=== PATIENT | female | born 1960 | race Caucasian/White ===

== ENCOUNTER 2016-10-13 09:56 | Emergency (ER) | payer BC ==
[2016-10-13 10:06] VITALS: RESP 18
[2016-10-13] MEDS ORDERED: methylPREDNISolone SOD SUCCI 125 MG/2 ML VIAL IM ONE (10:38)
[2016-10-13] MEDS ORDERED: diphenhydrAMINE 50 MG/ML 1 ML VIAL IM STA (10:38)
[2016-10-13] MEDS ORDERED: FAMOTIDINE 20 MG TAB PO STA (10:38)
--- NOTE | 2016-10-13 10:42 | ED ---
Skin/Abscess/FB HPI - General Chief complaint: Skin/Abscess/Foreign Body Stated complaint: Hives Time Seen by Provider: 10/13/16 10:20 Source: patient, RN notes reviewed, old records reviewed Mode of arrival: ambulatory Limitations: no limitations - History of Present Illness Initial comments: This is a 35-year-old female presenting to emergency room chief complaint of hive-like reaction for the past day. Patient reports initially started last night she noticed some welts on her finger. She reports that she went to bed at night, and woke up this morning with hives over her entire body. She reports that she had fish last night for dinner but does not have any previous ALLERGIC reaction such as this. Patient states that yesterday she was sitting on her porch drinking a glass of wine when she noticed that she started itching on her finger. Patient states she's had no recent Benadryl. She denies any shortness of breath or throat swelling. Patient denies any recent fever, chills , shortness of breath, chest pain, back pain, abdominal pain, nausea vomiting, numbness or tingling, dysuria or hematuria, constipation or diarrhea, headaches or visual changes, or any other current symptoms. And his history of psychiatric illness, and hypertension. - Related Data Home Medications Medication Instructions Recorded Confirmed ALPRAZolam [Xanax] 1 mg PO QID PRN 10/13/16 10/13/16 Carvedilol [Coreg] 12.5 mg PO BID 10/13/16 10/13/16 Escitalopram [Lexapro] 10 mg PO DAILY 10/13/16 10/13/16 Estrogens, Conjugated [Premarin] 0.625 mg PO DAILY 10/13/16 10/13/16 Lisinopril [Prinivil] 10 mg PO DAILY 10/13/16 10/13/16 Perphenazine/Amitriptyline4-25 1 tab PO TID PRN 10/13/16 10/13/16 Previous Rx's Medication Instructions Recorded Famotidine [Pepcid] 20 mg PO BID #10 tablet 10/13/16 predniSONE 50 mg PO DAILY #5 tab 10/13/16 Allergies Allergy/AdvReac Type Severity Reaction Status Date / Time No Known Allergies Allergy Verified 10/13/16 10:35 Review of Systems ROS Statement: Those systems with pertinent positive or pertinent negative responses have been documented in the HPI. ROS Other: All systems not noted in ROS Statement are negative. Past Medical History Additional Past Medical History / Comment(s): viral dilated cardiomyopathy depression History of Any Multi-Drug Resistant Organisms: None Reported Past Surgical History: Hysterectomy, Orthopedic Surgery Additional Past Surgical History / Comment(s): breast augmentation tummy kerryck Past Psychological History: Depression Smoking Status: Current every day smoker Past Alcohol Use History: Daily Past Drug Use History: None Reported General Exam - General Exam Comments Initial Comments: 55-year-old female. Patient does appear to be itching and discomfort. Limitations: no limitations General appearance: alert, in no apparent distress Head exam: Present: atraumatic, normocephalic, normal inspection Eye exam: Present: normal appearance, PERRL, EOMI. Absent: scleral icterus, conjunctival injection, periorbital swelling ENT exam: Present: normal exam, mucous membranes moist Neck exam: Present: normal inspection. Absent: tenderness, meningismus, lymphadenopathy Respiratory exam: Present: normal lung sounds bilaterally. Absent: respiratory distress, wheezes, rales, rhonchi, stridor Cardiovascular Exam: Present: regular rate, normal rhythm, normal heart sounds. Absent: systolic murmur, diastolic murmur, rubs, gallop, clicks GI/Abdominal exam: Present: soft, normal bowel sounds. Absent: distended, tenderness, guarding, rebound, rigid Extremities exam: Present: normal inspection, full ROM, normal capillary refill. Absent: tenderness, pedal edema, joint swelling, calf tenderness Back exam: Present: normal inspection Neurological exam: Present: alert, oriented X3, CN II-XII intact Psychiatric exam: Present: normal affect, normal mood Skin exam: Present: warm, dry, intact, normal color, urticaria (Patient has diffuse urticaria over arms, chest, abdomen and legs.). Absent: rash Course Vital Signs 10/13/16 10:01 Temperature 97.6 F Pulse Rate 96 Respiratory 18 Rate Blood Pressure 137/77 O2 Sat by Pulse 99 Oximetry - Reevaluation(s) Reevaluation #1: 10/13/16 11:38 is reevaluated and is feeling much better. Hives have resolved. Patient states the itching has stopped. Patient discharged at this time. Medical Decision Making - Medical Decision Making This is a 55-year-old female. Patient has diffuse urticaria over abdomen, chest , legs, and hands and wrists. Patient was given IM Solu-Medrol and Benadryl and Pepcid. Patient is reevaluated is feeling much better. The hives have resolved. Patient will be discharged with a prescription for prednisone and Pepcid. I discussed that she needs to purchase [id number] Benadryl taking every 4-6 hours. Discussed also using hydrocortisone cream. Patient understood history plan will comply. Return parameters were discussed. Disposition Clinical Impression: Acute urticaria, Allergic reaction Disposition: HOME SELF-CARE Condition: Good Instructions: Urticaria (ED) Additional Instructions: Advised to follow-up with primary care provider. Take the prescription as as directed. Return to the emergency department if any alarming signs or symptoms occur. Patient can purchase hydrocortisone cream [id number] to use for topical itch relief, as well as patient needs to take Benadryl every 4-6 hours. Prescriptions: Famotidine [Pepcid] 20 mg PO BID #10 tablet predniSONE 50 mg PO DAILY #5 tab Referrals: Pedro Pablo Schmid MD [Primary Care Provider] - 1-2 days Time of Disposition: 11:39
[2016-10-13 11:52] VITALS: BP 127/82; PULSE 70; TEMP 98.8
== END 2016-10-13 11:52 | disposition home or self-care (01) ==
LOC: EC 09:56
DX: L50.0 Allergic urticaria (principal); I42.0 Dilated cardiomyopathy; F32.9 Major depressive disorder, single episode, unspecified; F17.200 Nicotine dependence, unspecified, uncomplicated; Z79.3 Long term (current) use of hormonal contraceptives; Z79.899 Other long term (current) drug therapy
CPT/HCPCS: 99283; 96372 ×2; J1200; J2930

== ENCOUNTER 2016-12-05 23:02 | Emergency (ER) | payer BC ==
[2016-12-05 23:10] VITALS: BP 172/90; PULSE 102; RESP 16; TEMP 97.6
--- NOTE | 2016-12-05 23:29 | ED ---
Psych HPI - General Chief Complaint: Psychiatric Symptoms Stated Complaint: Mental Health/Suicidal Time Seen by Provider: 12/05/16 23:10 Source: patient, RN notes reviewed Mode of arrival: ambulatory Limitations: no limitations - History of Present Illness Initial Comments: This a 56-year-old female presents emergency Department for psychiatric evaluation. Patient states she is depressed, suicidal. Patient states she was here approximately one week ago because she felt this way but symptoms have progressed. Patient states that she was intoxicated before and then told EPS that she was not suicidal though she was. Patient states she attempted take some pills other day. She is them out. She states that if she does leave tonight that she will kill herself. Patient states that her depression and suicidal thoughts for her before. Patient is brought to emergency brought by . - Related Data Home Medications Medication Instructions Recorded Confirmed ALPRAZolam [Xanax] 1 mg PO QID PRN 10/13/16 11/29/16 Carvedilol [Coreg] 12.5 mg PO BID 10/13/16 11/29/16 Escitalopram [Lexapro] 10 mg PO DAILY 10/13/16 11/29/16 Estrogens, Conjugated [Premarin] 0.625 mg PO DAILY 10/13/16 11/29/16 Perphenazine/Amitriptyline4-25 1 tab PO TID PRN 10/13/16 11/29/16 Allergies Allergy/AdvReac Type Severity Reaction Status Date / Time bee venom protein (honey bee) Allergy Anaphylaxis Verified 12/05/16 23:10 Review of Systems ROS Statement: Those systems with pertinent positive or pertinent negative responses have been documented in the HPI. ROS Other: All systems not noted in ROS Statement are negative. Past Medical History Additional Past Medical History / Comment(s): viral dilated cardiomyopathy depression History of Any Multi-Drug Resistant Organisms: None Reported Past Surgical History: Hysterectomy, Orthopedic Surgery Additional Past Surgical History / Comment(s): breast augmentation tummy tuck Past Psychological History: Depression Smoking Status: Current every day smoker Past Alcohol Use History: Daily Past Drug Use History: None Reported General Exam Limitations: no limitations General appearance: alert, in no apparent distress Head exam: Present: atraumatic, normocephalic, normal inspection Eye exam: Present: normal appearance, PERRL, EOMI. Absent: scleral icterus, conjunctival injection, periorbital swelling ENT exam: Present: normal exam, normal oropharynx, mucous membranes moist, TM's normal bilaterally, normal external ear exam Neck exam: Present: normal inspection, full ROM. Absent: tenderness, meningismus, lymphadenopathy Respiratory exam: Present: normal lung sounds bilaterally. Absent: respiratory distress, wheezes, rales, rhonchi, stridor Cardiovascular Exam: Present: regular rate, normal rhythm, normal heart sounds. Absent: systolic murmur, diastolic murmur, rubs, gallop, clicks GI/Abdominal exam: Present: soft, normal bowel sounds. Absent: distended, tenderness, guarding, rebound, rigid Psychiatric exam: Present: flat affect Skin exam: Present: warm, dry, intact, normal color. Absent: rash Course Vital Signs 12/05/16 23:06 Temperature 97.6 F Pulse Rate 102 H Respiratory 16 Rate Blood Pressure 172/90 O2 Sat by Pulse 100 Oximetry Medical Decision Making - Medical Decision Making 56-year-old female presented emergency department for depression. Patient was evaluated by EPS. Case discussed with psychiatrist. Patient will be discharged for outpatient therapy. Patient states that she is not suicidal now. - Lab Data Result diagrams: 12/05/16 23:20 12/05/16 23:20 Lab Results 12/05/16 12/05/16 12/05/16 Range/Units 23:20 23:20 23:20 WBC 7.3 (3.8-10.6) k/uL RBC 4.08 (3.80-5.40) m/uL Hgb 14.0 (11.4-16.0) gm/dL Hct 41.7 (34.0-46.0) % MCV 102.2 H (80.0-100.0) fL MCH 34.3 (25.0-35.0) pg MCHC 33.5 (31.0-37.0) g/dL RDW 13.0 (11.5-15.5) % Plt Count 270 (150-450) k/uL Neutrophils % 46 % Lymphocytes % 40 % Monocytes % 6 % Eosinophils % 4 % Basophils % 1 % Neutrophils # 3.3 (1.3-7.7) k/uL Lymphocytes # 2.9 (1.0-4.8) k/uL Monocytes # 0.5 (0-1.0) k/uL Eosinophils # 0.3 (0-0.7) k/uL Basophils # 0.1 (0-0.2) k/uL Macrocytosis Slight Sodium (137-145) mmol/L Potassium (3.5-5.1) mmol/L Chloride (98-107) mmol/L Carbon Dioxide (22-30) mmol/L Anion Gap mmol/L BUN (7-17) mg/dL Creatinine (0.52-1.04) mg/dL Est GFR (MDRD) Af Amer (>60 ml/min/1.73 sqM) Est GFR (MDRD) Non-Af (>60 ml/min/1.73 sqM) Glucose (74-99) mg/dL Calcium (8.4-10.2) mg/dL Total Bilirubin (0.2-1.3) mg/dL AST (14-36) U/L ALT (9-52) U/L Alkaline Phosphatase (38-126) U/L Total Protein (6.3-8.2) g/dL Albumin (3.5-5.0) g/dL Urine Color Light Yellow Urine Appearance Cloudy H (Clear) Urine pH 5.5 (5.0-8.0) Ur Specific [place] 1.012 (1.001-1.035) Urine Protein Negative (Negative) Urine Glucose (UA) Negative (Negative) Urine Ketones Negative (Negative) Urine Blood Small H (Negative) Urine Nitrite Negative (Negative) Urine Bilirubin Negative (Negative) Urine Urobilinogen <2.0 (<2.0) mg/dL Ur Leukocyte Esterase Negative (Negative) Urine RBC 2 (0-5) /hpf Urine WBC 2 (0-5) /hpf Ur Squamous Epith Cells 7 H (0-4) /hpf Urine Bacteria Occasional H (None) /hpf Urine Mucus Rare H (None) /hpf Urine Opiates Screen Detected H (NotDetected) Ur Oxycodone Screen Not Detected (NotDetected) Urine Methadone Screen Not Detected (NotDetected) Ur Propoxyphene Screen Not Detected (NotDetected) Ur Barbiturates Screen Not Detected (NotDetected) U Tricyclic Antidepress Detected H (NotDetected) Ur Phencyclidine Scrn Not Detected (NotDetected) Ur Amphetamines Screen Not Detected (NotDetected) U Methamphetamines Scrn Not Detected (NotDetected) U Benzodiazepines Scrn Detected H (NotDetected) Urine Cocaine Screen Not Detected (NotDetected) U Marijuana (THC) Screen Not Detected (NotDetected) 12/05/16 Range/Units 23:20 WBC (3.8-10.6) k/uL RBC (3.80-5.40) m/uL Hgb (11.4-16.0) gm/dL Hct (34.0-46.0) % MCV (80.0-100.0) fL MCH (25.0-35.0) pg MCHC (31.0-37.0) g/dL RDW (11.5-15.5) % Plt Count (150-450) k/uL Neutrophils % % Lymphocytes % % Monocytes % % Eosinophils % % Basophils % % Neutrophils # (1.3-7.7) k/uL Lymphocytes # (1.0-4.8) k/uL Monocytes # (0-1.0) k/uL Eosinophils # (0-0.7) k/uL Basophils # (0-0.2) k/uL Macrocytosis Sodium 138 (137-145) mmol/L Potassium 4.2 (3.5-5.1) mmol/L Chloride 103 (98-107) mmol/L Carbon Dioxide 25 (22-30) mmol/L Anion Gap 10 mmol/L BUN 14 (7-17) mg/dL Creatinine 0.80 (0.52-1.04) mg/dL Est GFR (MDRD) Af Amer >60 (>60 ml/min/1.73 sqM) Est GFR (MDRD) Non-Af >60 (>60 ml/min/1.73 sqM) Glucose 94 (74-99) mg/dL Calcium 9.6 (8.4-10.2) mg/dL Total Bilirubin 0.2 (0.2-1.3) mg/dL AST 22 (14-36) U/L ALT 30 (9-52) U/L Alkaline Phosphatase 67 (38-126) U/L Total Protein 6.7 (6.3-8.2) g/dL Albumin 4.1 (3.5-5.0) g/dL Urine Color Urine Appearance (Clear) Urine pH (5.0-8.0) Ur Specific [place] (1.001-1.035) Urine Protein (Negative) Urine Glucose (UA) (Negative) Urine Ketones (Negative) Urine Blood (Negative) Urine Nitrite (Negative) Urine Bilirubin (Negative) Urine Urobilinogen (<2.0) mg/dL Ur Leukocyte Esterase (Negative) Urine RBC (0-5) /hpf Urine WBC (0-5) /hpf Ur Squamous Epith Cells (0-4) /hpf Urine Bacteria (None) /hpf Urine Mucus (None) /hpf Urine Opiates Screen (NotDetected) Ur Oxycodone Screen (NotDetected) Urine Methadone Screen (NotDetected) Ur Propoxyphene Screen (NotDetected) Ur Barbiturates Screen (NotDetected) U Tricyclic Antidepress (NotDetected) Ur Phencyclidine Scrn (NotDetected) Ur Amphetamines Screen (NotDetected) U Methamphetamines Scrn (NotDetected) U Benzodiazepines Scrn (NotDetected) Urine Cocaine Screen (NotDetected) U Marijuana (THC) Screen (NotDetected) Disposition Clinical Impression: Depression Disposition: HOME SELF-CARE Condition: Stable Instructions: Depression (ED) Additional Instructions: Please return to the Emergency Department if symptoms worsen or any other concerns. Referrals: Pedro Pablo Schmid MD [Primary Care Provider] - 1-2 days Time of Disposition: 01:15
[2016-12-05 23:57] LABS: Basophils # (A) 0.1 k/uL (0-0.2); Basophils % (A) 1 %; CH 34.1; CHCM 33.6; Eosinophils # (A) 0.3 k/uL (0-0.7); Eosinophils % (A) 4 %; HCT 41.7 % (34.0-46.0); HDW 2.62; Luc # (Auto) 0.22; Luc % (Auto) 3; Lymphocytes # (A) 2.9 k/uL (1.0-4.8); Lymphocytes % (A) 40 %; MCH 34.3 pg (25.0-35.0); MCHC 33.5 g/dL (31.0-37.0); MCV 102.2 fL (80.0-100.0); Macrocytosis Slight; Mean Platelet Volume 6.5; Monocytes # (A) 0.5 k/uL (0-1.0); Monocytes % (A) 6 %; Neutrophils # (A) 3.3 k/uL (1.3-7.7); Neutrophils % (A) 46 %; RBC 4.08 m/uL (3.80-5.40); WBC 7.3 k/uL (3.8-10.6)
[2016-12-06 00:03] LABS: Appearance,Urine Cloudy (Clear); Bacteria,Urine Occasional /hpf; Bilirubin,Urine Negative (Negative); Glucose,Urine (UA) Negative (Negative); Ketones,Urine Negative (Negative); Leukocyte Esterase,Urine Negative (Negative); Mucus,Urine Rare /hpf; Nitrite,Urine Negative (Negative); PH, Urine 5.5 (5.0-8.0); Particle Count 6068; Protein,Urine Negative (Negative); RBC,Urine 2 /hpf (0-5); Specific Gravity,Urine 1.012 (1.001-1.035); Squamous Epithelial Cell,Urine 7 /hpf (0-4); UA Billing (MACRO vs. MICRO) MICRO; Urobilinogen,Urine <2.0 mg/dL (<2.0); WBC,Urine 2 /hpf (0-5)
[2016-12-06 00:05] LABS: ALT 30 U/L (9-52); AST 22 U/L (14-36); Alkaline Phosphatase 67 U/L (38-126); Anion Gap 10 mmol/L; Blood Urea Nitrogen 14 mg/dL (7-17); Calcium 9.6 mg/dL (8.4-10.2); Carbon Dioxide 25 mmol/L (22-30); Chloride 103 mmol/L (98-107); Glucose 94 mg/dL (74-99); Non-African American GFR(MDRD) >60 (>60 ml/min/1.73 sqM); Potassium 4.2 mmol/L (3.5-5.1); Sodium 138 mmol/L (137-145); Total Bilirubin 0.2 mg/dL (0.2-1.3); Total Protein 6.7 g/dL (6.3-8.2)
== END 2016-12-06 01:39 | disposition home or self-care (01) ==
LOC: EC 23:02
DX: F32.9 Major depressive disorder, single episode, unspecified (principal); F17.200 Nicotine dependence, unspecified, uncomplicated; Z79.899 Other long term (current) drug therapy; Z91.030 Bee allergy status; R45.851 Suicidal ideations
CPT/HCPCS: 36415; 80053; 80306; 81001; 85025; 99284

== ENCOUNTER 2016-12-09 12:50 | Inpatient (IN) | payer BC ==
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
[2016-12-09] MEDS ORDERED: NICOTINE 21MG/24HR PATCH TRANSDERM STA (15:49)
[2016-12-09] MEDS ORDERED: ACETAMINOPHEN TAB 325 MG TAB PO PRN (18:09)
[2016-12-09] MEDS ORDERED: MAGNESIUM HYDROXIDE 2,400 MG/10 ML CUP PO PRN (18:09)
[2016-12-09] MEDS ORDERED: MAG HYDROX/AL HYDROX/SIMETH 30 ML CUP PO PRN (18:09)
[2016-12-09 19:01] VITALS: RESP 16
[2016-12-09] MEDS: CARVEDILOL 12.5 MG TAB PO SCH (19:15)
[2016-12-09] MEDS: ALPRAZolam 0.5 MG TAB PO PRN (19:15)
[2016-12-09] MEDS: AMITRIPTYLINE HCL 25 MG TAB PO SCH (22:12)
[2016-12-09] MEDS: PERPHENAZINE 4 MG TAB PO SCH (22:12)
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
[2016-12-10 09:07] VITALS: BMI 28.3
[2016-12-10 09:33] LABS: Basophils # (A) 0.1 k/uL (0-0.2); Basophils % (A) 1 %; CHCM 32.1; Eosinophils # (A) 0.2 k/uL (0-0.7); Eosinophils % (A) 3 %; HCT 44.9 % (34.0-46.0); HDW 2.55; Luc # (Auto) 0.09; Luc % (Auto) 1; Lymphocytes # (A) 2.5 k/uL (1.0-4.8); Lymphocytes % (A) 39 %; MCH 33.2 pg (25.0-35.0); MCHC 31.1 g/dL (31.0-37.0); MCV 106.6 fL (80.0-100.0); Macrocytosis Moderate; Mean Platelet Volume 6.3; Monocytes # (A) 0.3 k/uL (0-1.0); Monocytes % (A) 5 %; Neutrophils # (A) 3.3 k/uL (1.3-7.7); Neutrophils % (A) 51 %; RBC 4.22 m/uL (3.80-5.40); RDW 12.8 % (11.5-15.5); WBC 6.4 k/uL (3.8-10.6); WBC (Perox) 6.35
[2016-12-10] MEDS: AMITRIPTYLINE HCL 25 MG TAB PO SCH ×3 (09:34→21:09)
[2016-12-10] MEDS: CARVEDILOL 12.5 MG TAB PO SCH ×2 (09:34→17:39)
[2016-12-10] MEDS: ESTROGENS, CONJUGATED 0.625 MG TAB PO SCH (09:35)
[2016-12-10] MEDS: PERPHENAZINE 4 MG TAB PO SCH ×3 (09:35→21:09)
[2016-12-10] MEDS: ESCITALOPRAM 10 MG TAB PO SCH (09:36)
[2016-12-10] MEDS: NICOTINE 21MG/24HR PATCH TRANSDERM SCH (09:36)
[2016-12-10 09:51] LABS: ALT 26 U/L (9-52); AST 27 U/L (14-36); Alkaline Phosphatase 62 U/L (38-126); Anion Gap 11 mmol/L; Blood Urea Nitrogen 16 mg/dL (7-17); Calcium 9.8 mg/dL (8.4-10.2); Carbon Dioxide 24 mmol/L (22-30); Chloride 104 mmol/L (98-107); Cholesterol 263 mg/dL (<200); Glucose 122 mg/dL (74-99); HDL Cholesterol 109 mg/dL (40-60); Non-African American GFR(MDRD) >60 (>60 ml/min/1.73 sqM); Potassium 4.4 mmol/L (3.5-5.1); Sodium 139 mmol/L (137-145); Total Bilirubin 0.4 mg/dL (0.2-1.3); Total Protein 7.2 g/dL (6.3-8.2)
[2016-12-10] MEDS: ALPRAZolam 0.5 MG TAB PO PRN ×2 (14:37→21:11)
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
[2016-12-11 06:55] VITALS: BP 139/65; PULSE 90; TEMP 97.9
[2016-12-11] MEDS: ESTROGENS, CONJUGATED 0.625 MG TAB PO SCH (09:25)
[2016-12-11] MEDS: AMITRIPTYLINE HCL 25 MG TAB PO SCH (09:25)
[2016-12-11] MEDS: ESCITALOPRAM 10 MG TAB PO SCH (09:25)
[2016-12-11] MEDS: CARVEDILOL 12.5 MG TAB PO SCH (09:25)
[2016-12-11] MEDS: NICOTINE 21MG/24HR PATCH TRANSDERM SCH (09:25)
[2016-12-11] MEDS: PERPHENAZINE 4 MG TAB PO SCH (09:26)
== END 2016-12-11 10:33 | disposition home or self-care (01) | DRG 885 ==
LOC: EC 12:50 → 3MHU 16:59
PROVIDERS: ADMIT Psychiatry & Neurology Psychiatry; ATTEND Psychiatry & Neurology Psychiatry
DX: F33.1 Major depressive disorder, recurrent, moderate (principal); R45.851 Suicidal ideations; B33.24 Viral cardiomyopathy; F17.200 Nicotine dependence, unspecified, uncomplicated; F41.9 Anxiety disorder, unspecified; Z79.899 Other long term (current) drug therapy; Z90.710 Acquired absence of both cervix and uterus; Z98.82 Breast implant status; Z72.89 Other problems related to lifestyle; Z91.030 Bee allergy status
CPT/HCPCS: 80053; 80061; 80306; 82075; 83036; 84443; 85025; 99285

== ENCOUNTER 2017-03-04 17:39 | Emergency (ER) | payer BC ==
[2017-03-04] MEDS ORDERED: HYDROcodone/APAP 7.5-325MG 1 EACH TAB PO ONE (18:59)
--- NOTE | 2017-03-04 19:14 | ED ---
Extremity Problem HPI - General Chief complaint: Extremity Problem,Nontraumatic Stated complaint: Possible DVT Time Seen by Provider: 03/04/17 18:44 Source: patient, RN notes reviewed, old records reviewed Mode of arrival: ambulatory Limitations: no limitations - History of Present Illness Initial comments: this patient is a 56-year-old female presents emergency department today chief complaint of left calf pain. She reports that 2 weeks ago she was diagnosed with thrombophlebitis within the leg. She states she was taking aspirin, wearing compression stockings. She reports that she was concerned because she' s been having increasing pain in the leg. She states that she has been able to bear weight on it but it seems to be progressively worse. She reports that she' s had some shooting pains go down the leg as well as up the leg into the thigh. She reports that she was told to discontinue Premarin when she initially was diagnosed with a thrombophlebitis. He reports that the initial area of redness and swelling in her leg is gone down at this time, but she's concerned with the worsening pain.she is concerned that she may have a DVT. She denies any chest pain or shortness of breath.Patient denies any recent fever, chills, shortness of breath, chest pain, back pain, abdominal pain, nausea vomiting, numbness or tingling, dysuria or hematuria, constipation or diarrhea, headaches or visual changes, or any other current symptoms - Related Data Home Medications Medication Instructions Recorded Confirmed Carvedilol [Coreg*] 12.5 mg PO BID 10/13/16 03/04/17 Lisinopril [Zestril] 10 mg PO DAILY 03/04/17 03/04/17 Perphenazine/Amitriptyline4-25 1 tab PO DAILY 03/04/17 03/04/17 Previous Rx's Medication Instructions Recorded Escitalopram [Lexapro] 10 mg PO DAILY #14 tab 12/11/16 HYDROcodone/APAP 5-325MG [[place] 1 - 2 tab PO Q4H PRN #12 tab 03/04/17 5-325] Ibuprofen [Motrin] 600 mg PO Q8HR PRN #20 tab 03/04/17 Allergies Allergy/AdvReac Type Severity Reaction Status Date / Time bee venom protein (honey bee) Allergy Anaphylaxis Verified 03/04/17 19:02 Review of Systems ROS Statement: Those systems with pertinent positive or pertinent negative responses have been documented in the HPI. ROS Other: All systems not noted in ROS Statement are negative. Past Medical History Additional Past Medical History / Comment(s): "viral cardiomyopathy"takes coreg for it. depression since young child History of Any Multi-Drug Resistant Organisms: None Reported Past Surgical History: Hysterectomy, Orthopedic Surgery Additional Past Surgical History / Comment(s): breast augmentation tummy tuck, rt leg sx hardware since removed. "rt foot nerve removed" Past Anesthesia/Blood Transfusion Reactions: No Reported Reaction Past Psychological History: Depression Smoking Status: Current every day smoker Past Alcohol Use History: Daily Past Drug Use History: Prescription Drug Abuse - Past Family History Mother Family Medical History: Dementia Father Family Medical History: Cancer Additional Family Medical History / Comment(s): colon ca General Exam - General Exam Comments Initial Comments: this is a well-appearing alert and oriented 56-year-old female. No distress. Limitations: no limitations General appearance: alert, in no apparent distress Head exam: Present: atraumatic, normocephalic, normal inspection Eye exam: Present: normal appearance, PERRL, EOMI. Absent: scleral icterus, conjunctival injection, periorbital swelling ENT exam: Present: normal exam, mucous membranes moist Neck exam: Present: normal inspection. Absent: tenderness, meningismus, lymphadenopathy Respiratory exam: Present: normal lung sounds bilaterally. Absent: respiratory distress, wheezes, rales, rhonchi, stridor Cardiovascular Exam: Present: regular rate, normal rhythm, normal heart sounds. Absent: systolic murmur, diastolic murmur, rubs, gallop, clicks GI/Abdominal exam: Present: soft, normal bowel sounds. Absent: distended, tenderness, guarding, rebound, rigid Left Knee exam: Present: normal inspection, full ROM Lower Leg exam: Present: full ROM, erythema (minimal erythema pver distal calf) . Absent: normal inspection Ankle exam: Present: normal inspection, full ROM Foot/Toe exam: Present: normal inspection, full ROM Course Vital Signs 03/04/17 03/04/17 03/04/17 17:49 19:40 20:34 Temperature 97.4 F L 97.9 F Pulse Rate 104 H 91 90 Respiratory 17 18 12 Rate Blood Pressure 174/90 156/72 169/82 O2 Sat by Pulse 100 96 98 Oximetry Medical Decision Making - Medical Decision Making this patient is a 56-year-old female presents emergency department today chief complaint of left calf pain. She reports that 2 weeks ago she was diagnosed with thrombophlebitis within the leg. She states she was taking aspirin, wearing compression stockings. She reports that she was concerned because she' s been having increasing pain in the leg. She states that she has been able to bear weight on it but it seems to be progressively worse. She reports that she' s had some shooting pains go down the leg as well as up the leg into the thigh.patient does have some minor erythema over the distal aspect of the calf. She does have some tenderness over the gastrocnemius muscle. Patient has no significant swelling with like this with DVT. I did do an ultrasound. Ultrasound was negative for DVT. She has full range of motion of the toes and ankle and knee. At this emesis and seems most likely musculoskeletal or nerve related pain. Discussed that she should follow-up with her primary care physician. Discharge with a short course of pain medication and anti- inflammatory medicine. Discussed icing the area, and resting and keeping it elevated. She'll continue to use compression stockings whenever she is awake. Discussed taking off at night. - Radiology Data Radiology results: report reviewed ultrasound is negative for DVT. Disposition Clinical Impression: Pain of left calf Disposition: HOME SELF-CARE Condition: Good Instructions: Leg Pain (ED) Additional Instructions: patient advised to follow-up with primary care provider. Return to the emergency department if any alarming signs or symptoms occur. Prescriptions: HYDROcodone/APAP 5-325MG [[place] 5-325] 1 - 2 tab PO Q4H PRN #12 tab PRN Reason: Pain Ibuprofen [Motrin] 600 mg PO Q8HR PRN #20 tab PRN Reason: Pain Referrals: Pedro Pablo Schmid MD [Primary Care Provider] - 1-2 days Time of Disposition: 20:07
--- NOTE | 2017-03-04 19:39 | US ---
EXAMINATION TYPE: US venous doppler duplex LE LT DATE OF EXAM: 03/04/2017 6:54 PM COMPARISON: NONE CLINICAL HISTORY: Pain. SIDE PERFORMED: Left TECHNIQUE: The lower extremity deep venous system is examined utilizing real time linear array sonog jody with graded compression, doppler sonography and color-flow sonography. VESSELS IMAGED: External Iliac Vein (EIV) Common Femoral Vein Deep Femoral Vein Greater Saphenous Vein * Femoral Vein Popliteal Vein Small Saphenous Vein *, not visualized Proximal Calf Veins (* superficial vessels) Left Leg: Negative for DVT IMPRESSION: Grayscale, color doppler, spectral doppler imaging performed of the deep veins of the lo wer extremities. There is normal flow, compressibility, vascular waveforms. No evident deep venous thrombosis at or above the left knee
[2017-03-04 20:35] VITALS: BP 169/82; PULSE 90; RESP 12; TEMP 97.9
== END 2017-03-04 20:30 | disposition home or self-care (01) ==
LOC: EC 17:39
DX: M79.605 Pain in left leg (principal); F32.9 Major depressive disorder, single episode, unspecified; F17.200 Nicotine dependence, unspecified, uncomplicated; Z79.899 Other long term (current) drug therapy; Z91.030 Bee allergy status
CPT/HCPCS: 99284

== ENCOUNTER → 2017-05-04 | Outpatient (CLI) | payer BC ==
--- NOTE | 2017-05-04 17:16 | CT ---
EXAMINATION TYPE: CT iac w con DATE OF EXAM: 05/04/2017 COMPARISON: NONE HISTORY: Right ear thumping x [address] DLP: 150 mGycm Automated exposure control for dose reduction was used. CONTRAST: CT scan of the IACs is performed with IV Contrast, patient injected with 100 mL of Omnipaque 300. FINDINGS: There is significant mucosal thickening in the right maxillary sinus. The other paranasal s inuses are fairly well aerated. Maxilla is intact. There is normal aeration of the mastoid sinuses. E xternal auditory canals appear normal. The internal auditory canals are fairly symmetric. There is n o sinus cerebellopontine angle mass. There is however some enhancement within the right internal jodi tory canal compared to the left. There is normal aeration of the epitympanic recess bilaterally. Ther e is normal aeration of the middle ear cavity. I see no focal bone destruction. IMPRESSION: There is some mild enhancement within the right internal auditory canal that could relate to a small neuroma. MR scan would be helpful for further evaluation if clinically indicated. Right maxillary sinusitis.
== END | disposition home or self-care (01) ==
LOC: RADCTMAIN 15:50
PROVIDERS: ATTEND Otolaryngology
DX: H92.01 Otalgia, right ear (principal)
CPT/HCPCS: 70481; Q9967

== ENCOUNTER 2017-07-15 03:47 | Emergency (ER) | payer BC ==
[2017-07-15 03:55] VITALS: BP 122/72; PULSE 107; RESP 18; TEMP 97.7
[2017-07-15] MEDS ORDERED: PHENAZOPYRIDINE 200 MG TAB PO STA (04:01)
[2017-07-15] MEDS ORDERED: IBUPROFEN 600 MG TAB PO STA (04:01)
--- NOTE | 2017-07-15 04:05 | ED ---
Female Urogenital HPI - General Chief complaint: Urogenital Stated complaint: Possible UTI Time Seen by Provider: 07/15/17 03:55 Source: patient Mode of arrival: ambulatory Limitations: no limitations - History of Present Illness Initial comments: This is a 48-year-old female who presents emergency department for suprapubic abdominal pain, dysuria, and hematuria. She states that the symptoms began yesterday with some suprapubic discomfort however the symptoms progress throughout the day. She states that she currently has urinary frequency, dysuria, and hematuria. She states that this is consistent with previous UTIs. She states that she could not. The pain this evening so she decided to come emergency department. [place] and she wanted to be started on antibiotics right away. She states that she has previously been on Cipro and Bactrim. Denies any fevers or chills. No nausea or vomiting. No diarrhea. No other acute complaints. - Related Data Home Medications Medication Instructions Recorded Confirmed Carvedilol [Coreg*] 12.5 mg PO BID 10/13/16 03/04/17 Lisinopril [Zestril] 10 mg PO DAILY 03/04/17 03/04/17 Perphenazine/Amitriptyline4-25 1 tab PO DAILY 03/04/17 03/04/17 Previous Rx's Medication Instructions Recorded Escitalopram [Lexapro] 10 mg PO DAILY #14 tab 12/11/16 HYDROcodone/APAP 5-325MG [[place] 1 - 2 tab PO Q4H PRN #12 tab 03/04/17 5-325] Ibuprofen [Motrin] 600 mg PO Q8HR PRN #20 tab 03/04/17 Phenazopyridine [Pyridium] 200 mg PO TID PRN #9 tablet 07/15/17 Sulfamethox-Tmp 800-160Mg [Bactrim 1 tab PO Q12HR #14 tab 07/15/17 DS 800-160 mg] Allergies Allergy/AdvReac Type Severity Reaction Status Date / Time bee venom protein (honey bee) Allergy Anaphylaxis Verified 07/15/17 03:55 Review of Systems ROS Statement: Those systems with pertinent positive or pertinent negative responses have been documented in the HPI. ROS Other: All systems not noted in ROS Statement are negative. Past Medical History Additional Past Medical History / Comment(s): "viral cardiomyopathy"takes coreg for it. depression since young child History of Any Multi-Drug Resistant Organisms: None Reported Past Surgical History: Hysterectomy, Orthopedic Surgery Additional Past Surgical History / Comment(s): breast augmentation tummy tuck, rt leg sx hardware since removed. "rt foot nerve removed" Past Anesthesia/Blood Transfusion Reactions: No Reported Reaction Past Psychological History: Depression Smoking Status: Current every day smoker Past Alcohol Use History: Daily Past Drug Use History: Prescription Drug Abuse - Past Family History Mother Family Medical History: Dementia Father Family Medical History: Cancer Additional Family Medical History / Comment(s): colon ca General Exam - General Exam Comments Initial Comments: Constitutional: Awake alert appears uncomfortable Head: Normocephalic atraumatic Eyes: no conjunctival injection No scleral icterus EOMI Neck: No JVD Supple Heart: Regular rate rhythm normal S1-S2 no murmurs Lungs: Clear to auscultation bilaterally No wheezing No rales Abdomen: Soft nondistended mild suprapubic tenderness without rebound or guarding Extremities: Non edematous DP pulses intact Radial pulses intact Neuro: A&Ox3 No focal neurologic deficits Psych: Appropriate mood and affect Limitations: no limitations Course Vital Signs 07/15/17 03:52 Temperature 97.7 F Pulse Rate 107 H Respiratory 18 Rate Blood Pressure 122/72 O2 Sat by Pulse 99 Oximetry Medical Decision Making - Medical Decision Making Is a 56-year-old came in for dysuria and hematuria. UA was positive for UTI. The patient will be started on Bactrim and was given one dose while emergency department. We'll also send home on Pyridium for symptom control. Culture was sent. Return emergency Department for worsening symptoms or fevers, chills, or any other concerning symptoms. All questions answered. - Lab Data Lab Results 07/15/17 Range/Units 03:56 Urine Color Dark Red Urine Appearance Turbid H (Clear) Urine pH 6.0 (5.0-8.0) Ur Specific [place] 1.021 (1.001-1.035) Urine Protein 3+ H (Negative) Urine Glucose (UA) Negative (Negative) Urine Ketones Negative (Negative) Urine Blood Large H (Negative) Urine Nitrite Negative (Negative) Urine Bilirubin Negative (Negative) Urine Urobilinogen <2.0 (<2.0) mg/dL Ur Leukocyte Esterase Large H (Negative) Urine RBC >182 H (0-5) /hpf Urine WBC >182 H (0-5) /hpf Urine WBC Clumps Few H (None) /hpf Urine Bacteria Few H (None) /hpf Disposition Clinical Impression: UTI (urinary tract infection) Disposition: HOME SELF-CARE Condition: Stable Instructions: Urinary Tract Infection in Women (ED) Prescriptions: Phenazopyridine [Pyridium] 200 mg PO TID PRN #9 tablet PRN Reason: Burning Sulfamethox-Tmp 800-160Mg [Bactrim DS 800-160 mg] 1 tab PO Q12HR #14 tab Is patient prescribed a controlled substance at d/c from ED?: No Referrals: Kam Davis DO [Primary Care Provider] - 1-2 days
[2017-07-15 04:10] LABS: Appearance,Urine Turbid (Clear); Bacteria,Urine Few /hpf; Bilirubin,Urine Negative (Negative); Blood,Urine Large (Negative); Color,Urine Dark Red; Glucose,Urine (UA) Negative (Negative); Ketones,Urine Negative (Negative); Leukocyte Esterase,Urine Large (Negative); Nitrite,Urine Negative (Negative); Protein,Urine 3+ (Negative); RBC,Urine >182 /hpf (0-5); Urobilinogen,Urine <2.0 mg/dL (<2.0); WBC,Urine >182 /hpf (0-5)
[2017-07-15] MEDS ORDERED: SULFAMETHOX-TMP 800-160MG 1 EACH TAB PO STA (04:12)
[2017-07-15] MEDS ORDERED: SULFAMETH-TMP DS STARTER PACK 2 TAB BTL PO STA (04:12)
[2017-07-15 04:13] LABS: Specific Gravity,Urine 1.021 (1.001-1.035)
== END 2017-07-15 04:24 | disposition home or self-care (01) ==
LOC: EC 03:47
DX: N39.0 Urinary tract infection, site not specified (principal); B33.24 Viral cardiomyopathy; F17.200 Nicotine dependence, unspecified, uncomplicated; Z90.710 Acquired absence of both cervix and uterus; Z79.02 Long term (current) use of antithrombotics/antiplatelets; Z79.899 Other long term (current) drug therapy; Z91.030 Bee allergy status
CPT/HCPCS: 81001; 87086; 99284